=== PATIENT | female | born 1985 | race African-American/Black ===

== ENCOUNTER 2016-10-15 12:30 | Emergency (ER) | payer MEDICAID, OTHER ==
[~2016-10-15] VITALS: Ht 162.6 cm; Wt 93.0 kg
[2016-10-15 12:43] VITALS: BP 209/137
--- NOTE | 2016-10-15 12:49 | NUR ---
Patient ambulated to bed 4. RN evaluating patient at bedside.
--- NOTE | 2016-10-15 13:20 | NUR ---
Dr house evaluating aao pt at bedside; pt placed on O2 @ 2lpm Spo2 97%
--- NOTE | 2016-10-15 13:21 | NUR ---
PT PRESENTS TO ER W/C/O GEN BODY ACHES/PAIN SINCE LAST NOC. HX SICKLE CELL, DM, HTN. DENIES N/V/D; SKIN IS PINK/WARM/DRY; AAOX4 WITH EVEN AND STEADY GAIT; LUNGS CLEAR BL; HR EVEN AND REGULAR; PT DENIES ANY FEVER, CP, SOB, OR COUGH AT THIS TIME; PATIENT STATES PAIN OF 10/10 AT THIS TIME; VSS; PATIENT POSITIONED FOR COMFORT; HOB ELEVATED; BEDRAILS UP X2; BED DOWN. ER MD MADE AWARE OF PT STATUS.
[2016-10-15] MEDS ORDERED: KETOROLAC 60 MG/2 ML VIAL IM ONE (13:25)
--- NOTE | 2016-10-15 13:29 | NUR ---
PT LEFT WITHOUT DISCHARGE INSTRUCTIONS Addendum: 10/15/16 at [address] ASHELY PARKIED
== END 2016-10-15 13:29 | disposition home or self-care (01) ==
LOC: MED 12:30
DX: M79.1 Myalgia (principal); R11.2 Nausea with vomiting, unspecified; E11.9 Type 2 diabetes mellitus without complications; I10 Essential (primary) hypertension
CPT/HCPCS: 99281